=== PATIENT | male | born 1980 | race Caucasian/White ===

== ENCOUNTER 2021-03-05 08:11 | Inpatient (IN) | payer BC ==
[~2021-03-05] VITALS: Ht 185.4 cm; Wt 144.9 kg
[~2021-03-05 08:11] MED LIST: ACET325; ALBU90OI INH; AZIT250 PO; CLIN300 PO; CRUTCH3 USE; Cleocin HCl150 MG PO; DIAZ5 PO; FOLI1 PO; HYDACE5 PO; HYDMOR2 PO; HYDMOR4; IBUHYD PO; LAVAP17G PO; MESALAMINE; METH10 PO; MOMENI; Naprosyn500 MG PO; Norco 5-325 Ta1 EACH PO; OXYACE5T; OXYACE5T PO; OXYC10ER; OXYC5 PO; PRED10 PO; PRED20 PO; PREDNISONE; PROM25 PO; RXHYDMOR2 PO; RXOXYACE PO; RXPRED10; SUBOXONE 8 MG-1 EACH; SULF500A; SULF500A PO; SULTRIDS PO; SUMA25; VERA80
[2021-03-05] MEDS ORDERED: BUPRENORPHINE HC8 MG SL (08:33)
[2021-03-05 09:58] LABS: BASOPHILS ABSOLUTE AUTO 0.01 K/mm3 (0.00-0.23); BASOPHILS PERCENT AUTO 0 % (0-2); EOSINOPHILS ABSOLUTE AUTO 0.01 K/mm3 (0.00-0.68); EOSINOPHILS PERCENT AUTO 0 % (0-6); Hematocrit 36.2 % (37.0-53.0); Hemoglobin 12.1 g/dL (13.5-17.5); IMMATURE GRAN ABSOLUTE AUTO 0.03 K/mm3 (0.00-0.10); IMMATURE GRAN PERCENT AUTO 1 % (0-1); LYMPHOCYTES ABSOLUTE AUTO 0.52 K/mm3 (0.84-5.20); LYMPHOCYTES PERCENT AUTO 22 % (21-46); MONOCYTES ABSOLUTE AUTO 0.13 K/mm3 (0.16-1.47); MONOCYTES PERCENT AUTO 6 % (4-13); Mean Corpuscular HGB 29.6 pg (26.0-34.0); Mean Corpuscular HGB Conc 33.4 g/dL (31.5-36.5); Mean Corpuscular Volume 89 fL (80-100); Mean Platelet Volume 10.9 fL (9.1-12.4); NEUTROPHILS ABSOLUTE AUTO 1.67 K/mm3 (1.96-9.15); NEUTROPHILS PERCENT AUTO 71 % (41-73); Platelet Count 131 K/mm3 (150-400); RDW Standard Deviation 42.1 fL (35.1-46.3); Red Blood Cell Count 4.09 M/mm3 (4.30-5.90); White Blood Cell Count 2.37 K/mm3 (4.00-11.30)
[2021-03-05 10:21] LABS: Alanine Aminotransfer (ALT/SGP 145 U/L (12-78); Albumin, Blood 3.2 g/dL (3.4-5.0); Alk Phos 74 U/L (50-136); Anion Gap 4 mmol/L (6-16); Aspartate Aminotrans (AST/SGOT 220 U/L (12-37); Bilirubin, Total 0.5 mg/dL (0.1-1.0); Blood Urea Nitrogen 13 mg/dL (8-24); Bun/Creatinine Ratio 13.4 (12.0-20.0); CO2, Blood 29 mmol/L (21-32); Calcium, Blood 8.2 mg/dL (8.5-10.1); Chloride, Blood 107 mmol/L (98-108); Creatinine, Blood 0.97 mg/dL (0.60-1.20); Globulin, Blood 3.3 g/dL (2.2-4.0); Glomerular Filtration Rate >60 (60-); Glucose, Blood 114 mg/dL (70-99); Potassium, Blood 3.5 mmol/L (3.5-5.5); Sodium, Blood 140 mmol/L (136-145); Total Protein, Blood 6.5 g/dL (6.4-8.2)
--- NOTE | 2021-03-05 17:14 | NUR ---
SUMMARY PT ADMITTED FROM THE ER FOR COVID-19, AND NEEDING OXYGEN, PT IS ALERT AND ORIENTED, INDEPENDENT IN THE ROOM, ORIENTED PT TO THE ROOM AND CALL SYSTEM, EDUCATED PT ABOUT MEDICAL EQUIPMENT IN THE ROOM, PT DOES NOT APPEAR IN ANY RESPIRATORY DISTRESS, PT ON 7L VENTI MASK, PLACED ON 8L HIGH FLOW O2, CONTINUOUS OXIMETER IN PLACE, PT SATS RANGE FROM 87 TO 94, SATS DROP WHEN PT TALKING OR SLEEPING, PT PLACED BACK ON 7L VENTI MASK FOR SLEEPING PER HIS REQUEST, NO COMPLAINTS, VSS, WILL CONT TO MONITOR
--- NOTE | 2021-03-06 00:56 | NUR ---
CALL TO HOSPITALIST / BRADYCARDIA HR AVERAGING 50-56, NORAL SINUS. LOW AT 48 BPM PER TELE MONITOR. INFORMED HOSPITALIST DR. CALVILLO. NEW ORDER FOR CPAP. RT NOTIFIED.
--- NOTE | 2021-03-06 02:47 | NUR ---
CALL TO HOSPITALIST / PT REFUSING CPAP NOTIFIED DR. CALVILLO OF FAILED ATTEMPT AT USING CPAP. ORDERS TO CONT TO MONITOR VIA TELE.
--- NOTE | 2021-03-06 04:23 | NUR ---
SHIFT SUMMARY: AAOX4. MAINTAINING 02 SATS 89-92% ON 10L VIA VENTIMASK. STATES HE IS FEELING GENERALLY BETTER. NO CHEST PAIN, NO SOB. LS DIM. REPORTS INFREQUENT NON-PRODUCTIVE COUGH. NO N/V/D. INDEPENDENT IN ROOM. CALLS APPROPRIATELY. SINUS LORRAINE THROUGH THE NIGHT W/ RATE RANGING FROM 48 TO 56 WHILE SLEEPING. HR IN THE 60'S WHILE AWAKE. NO ACUTE OVERNIGHT EVENTS. WCTM.
[2021-03-06 05:13] LABS: BASOPHILS ABSOLUTE AUTO 0.01 K/mm3 (0.00-0.23); BASOPHILS PERCENT AUTO 0 % (0-2); EOSINOPHILS PERCENT AUTO 0 % (0-6); Hematocrit 35.2 % (37.0-53.0); Hemoglobin 11.8 g/dL (13.5-17.5); IMMATURE GRAN ABSOLUTE AUTO 0.04 K/mm3 (0.00-0.10); IMMATURE GRAN PERCENT AUTO 2 % (0-1); LYMPHOCYTES ABSOLUTE AUTO 0.44 K/mm3 (0.84-5.20); LYMPHOCYTES PERCENT AUTO 19 % (21-46); MONOCYTES ABSOLUTE AUTO 0.28 K/mm3 (0.16-1.47); MONOCYTES PERCENT AUTO 12 % (4-13); Mean Corpuscular HGB 29.8 pg (26.0-34.0); Mean Corpuscular HGB Conc 33.5 g/dL (31.5-36.5); Mean Corpuscular Volume 89 fL (80-100); NEUTROPHILS ABSOLUTE AUTO 1.53 K/mm3 (1.96-9.15); NEUTROPHILS PERCENT AUTO 67 % (41-73); Platelet Count 137 K/mm3 (150-400); RDW Coefficient Variation 12.8 % (11.7-14.2); RDW Standard Deviation 42.2 fL (35.1-46.3); Red Blood Cell Count 3.96 M/mm3 (4.30-5.90)
[2021-03-06 05:38] LABS: Alanine Aminotransfer (ALT/SGP 145 U/L (12-78); Albumin/Globulin Ratio 0.9 (0.8-1.8); Alk Phos 75 U/L (50-136); Anion Gap 7 mmol/L (6-16); Aspartate Aminotrans (AST/SGOT 181 U/L (12-37); Bilirubin, Total 0.5 mg/dL (0.1-1.0); Blood Urea Nitrogen 16 mg/dL (8-24); Bun/Creatinine Ratio 18.5 (12.0-20.0); CO2, Blood 27 mmol/L (21-32); Chloride, Blood 104 mmol/L (98-108); Creatinine, Blood 0.86 mg/dL (0.60-1.20); Globulin, Blood 3.4 g/dL (2.2-4.0); Glomerular Filtration Rate >60 (60-); Glucose, Blood 115 mg/dL (70-99); Sodium, Blood 138 mmol/L (136-145); Total Protein, Blood 6.4 g/dL (6.4-8.2)
--- NOTE | 2021-03-06 18:55 | NUR ---
ASSUMED CARE RECEIVED REPORT FROM ANDRE BOSWELL. PT RESTING, IN NO ACUTE DISTRESS. O2 SATS AVERAGING IN THE LOW 90'S, HR IN THE MID 50'S. NO ACUTE NEEDS ASSESSED AT THIS TIME. CALL LIGHT IN REACH.
--- NOTE | 2021-03-06 19:21 | NUR ---
SHIFT SUMMARY: NO ACUTE CHANGES TO REPORT THIS SHIFT. PT A&O; CALM AND COOPERATIVE WITH CARE; INDEPENDENT IN ROOM. COVID-19 POSITIVE; REMDESIVIR QD; DAY 1 TODAY. O2 @ 10L; RA @ HOME. REPORT GIVENTO ONCOMING RN.
--- NOTE | 2021-03-06 21:15 | NUR ---
THIS RN SPOKE TO DUSTY HERRMANN REGARDING PT'S ONGOING BRADYCARDIA AND HR TOUCHING DOWN TO 43. NO NEW ORDERS RECEIVED AT THIS TIME. PT ASYMPTOMATIC, WCTM PT'S HR AND PROVIDE TX NEEDED.
--- NOTE | 2021-03-07 02:30 | NUR ---
THIS RN NOTIFIED BY BODY AND FENDER WORKER OF PT'S HR REACHING RATE OF 39. PT ASYMPTOMATIC. WCTM.
--- NOTE | 2021-03-07 06:39 | NUR ---
UTILITY ACCOUNTS DIRECTOR SUMMARY PT RESTING, IN NO ACUTE DISTRESS. VS REVIEWED, WNL; PT HAS BEEN TRENDING BRADYCARDIC, HR AVERAGING MID 40'S-50'S; PT ASYMPTOMATIC; O2 SATS 89-94% ON 10L VENTI-MASK, ENCOURAGED PT TO SELF-PRONE, SLEEP ON SIDE MUCH TOLERATED, PT INDICATED UNDERSTANDING. O2 SATS INCREASED TO 94-96% WHEN PRONED. SLEPT T/O NIGHT. DENIES CP/PRESSURE. STATES IT "FEELS LIKE SHARP KNIVES ARE POKING ME" WHEN INHALING; ENCOURAGED DEEP BREATHING. PT IN NO ACUTE DISTRESS AT THIS TIME. DENIES NEEDS. CALL LIGHT, POSSESSIONS IN REACH. WILL CONTINUE TO PROVIDE CARE UNTIL REPORT GIVEN TO DAY RN.
--- NOTE | 2021-03-07 18:04 | NUR ---
SHIFT SUMMARY: NO ACUTE EVENTS TO REPORT THIS SHIFT. PT A&O; CALM AND COOPERATIVE WITH CARE; INDEPENDENT IN ROOM. COVID POSITIVE; LUNGS DIM c RHONCHI; CPAP IN PLACE T/O SHIFT - O2 SATS 92-94%; REMDESIVIR & STEROIDS CONTINUING; RT FOLLOWING. WCTM.
--- NOTE | 2021-03-08 16:31 | NUR ---
Met with pt this am; he was lying in bed using oxygen on 9L. Denies SOB at this time while on the 02. He states he began running a fever a few days ago along with his and daughter. He decided his family should be self quarantining, and continued until he became SOB and came to the hospital. He tested positive upon arrival at the ED, and his 02 sats were in the 80's. He states both his and daughter did not get as sick as him, and had no real respiratory symptoms at all, and are both on the mend.
--- NOTE | 2021-03-08 18:35 | NUR ---
PT IS A/OX3, PLEASANT AND COOPERATIVE, THE PT IS UP IND IN HIS ROOM. THE PT DENIED ANY PAIN OR N/V TODAY, THIS AM THE PTS O2 WAS AT 10L/MIN, T/O THE DAY THE PTS O2 HAS BEEN TITRATED DOWN, NOW AT 5L/MIN, THE PTS SPO2 IS CONSISTANT AT THIS TIME AT 93%, THE PTS HEART RATE HAS BEEN IN THE 45-60 BPM RANGE T/O THE DAY, THE PT IS ON TELE, CALL LIGHT IN REACH, WILL CONTINUE TO MONITOR AND ASSESS FOR CHANGES
[2021-03-09 06:03] LABS: BASOPHILS ABSOLUTE AUTO 0.06 K/mm3 (0.00-0.23); BASOPHILS PERCENT AUTO 1 % (0-2); EOSINOPHILS PERCENT AUTO 0 % (0-6); Hematocrit 38.5 % (37.0-53.0); Hemoglobin 12.6 g/dL (13.5-17.5); IMMATURE GRAN ABSOLUTE AUTO 0.53 K/mm3 (0.00-0.10); IMMATURE GRAN PERCENT AUTO 9 % (0-1); LYMPHOCYTES ABSOLUTE AUTO 1.14 K/mm3 (0.84-5.20); LYMPHOCYTES PERCENT AUTO 19 % (21-46); MONOCYTES PERCENT AUTO 14 % (4-13); Mean Corpuscular HGB 29.4 pg (26.0-34.0); Mean Corpuscular HGB Conc 32.7 g/dL (31.5-36.5); Mean Corpuscular Volume 90 fL (80-100); NEUTROPHILS ABSOLUTE AUTO 3.36 K/mm3 (1.96-9.15); NEUTROPHILS PERCENT AUTO 57 % (41-73); Platelet Count 224 K/mm3 (150-400); RDW Coefficient Variation 12.8 % (11.7-14.2); RDW Standard Deviation 42.5 fL (35.1-46.3); Red Blood Cell Count 4.29 M/mm3 (4.30-5.90); White Blood Cell Count 5.89 K/mm3 (4.00-11.30)
[2021-03-09 06:37] LABS: Anion Gap 5 mmol/L (6-16); BAND PERCENT MAN 3 % (0-8); BASOPHILS PERCENT MAN 0 % (0-2); Blood Urea Nitrogen 29 mg/dL (8-24); Bun/Creatinine Ratio 30.2 (12.0-20.0); CO2, Blood 29 mmol/L (21-32); Calcium, Blood 7.9 mg/dL (8.5-10.1); Chloride, Blood 105 mmol/L (98-108); Creatinine, Blood 0.96 mg/dL (0.60-1.20); EOSINOPHILS PERCENT MAN 0 % (0-6); Glomerular Filtration Rate >60 (60-); Glucose, Blood 90 mg/dL (70-99); LYMPHOCYTES ABSOLUTE MAN 0.88 K/mm3 (0.84-5.20); LYMPHOCYTES PERCENT MAN 15 % (21-46); METAMYELOCYTE ABSOLUTE MAN 0.35 K/mm3 (0.00-0.00); METAMYELOCYTE PERCENT MAN 6 % (0-0); MONOCYTES ABSOLUTE MAN 0.41 K/mm3 (0.16-1.47); MONOCYTES PERCENT MAN 7 % (4-13); MYELOCYTE ABSOLUTE MAN 0.23 K/mm3 (0.00-0.00); MYELOCYTE PERCENT MAN 4 % (0-0); Potassium, Blood 4.1 mmol/L (3.5-5.5); SEG NEUTROPHILS PERCENT MAN 65 % (41-73); Sodium, Blood 139 mmol/L (136-145); TOTAL CELLS COUNTED 100
--- NOTE | 2021-03-09 06:39 | NUR ---
BUYER PLANNER SUMMARY PT AAOX4 AND VERY PLEASANT. INDEPENDENT TO BATHROOM. PT STATES BREATHING IMPROVED TONIGHT. PT STARTED SHIFT ON 5L O2 VIA VENTURI MASK, TITRATED DOWN TO 2L CURRENTLY. O2 SATS NOW 90-94% ON 2L. PT TO RECIEVE FINAL DOSE OF REMDESIVIR LATER TODAY. VSS, WILL CONTINUE TO MONITOR.
[2021-03-09] MEDS ORDERED: DEXA6 PO (12:42)
[2021-03-09] MEDS ORDERED: HYDROCHLOROTH12.5 MG PO (12:43)
--- NOTE | 2021-03-09 13:20 | NUR ---
DISCHARGE INSTRUCTIONS REVIEWED WITH PT. IV DC'D INTACT. RX FAXED TO [facility] ATTEMPTED TO CALL PCP FOR F/U APPT BUT OUT FOR LUNCH PT REPORTS HE WILL CALL FOR APPT. PT EAGER TO GO HOME, ON ROOM AIR AND AMBULATING INDEP IN ROOM. PT DC'D HOME AT 1315, ESCORTED OUT VIA W/C.
== END 2021-03-09 13:15 | disposition home or self-care (01) | DRG 177 ==
LOC: ER 08:11 → MEDS 11:01 → ER 12:19 → MEDS 12:36 → ENPENDDIS 03-09 12:50 → MEDS 03-09 13:15
PROVIDERS: Emergency Medicine; Student in an Organized Health Care Education/Training Program; ADMIT Internal Medicine
PROC: 8E0ZXY6 Isolation (ICD-10-PCS; principal; 2021-03-05)
PROC: XW033E5 Introduction of Remdesivir Anti-infective into Peripheral Vein, Percutaneous Approach, New Technology Group 5 (ICD-10-PCS; 2021-03-06)
PROC: 5A09457 Assistance with Respiratory Ventilation, 24-96 Consecutive Hours, Continuous Positive Airway Pressure (ICD-10-PCS; 2021-03-07)
DX: U07.1 COVID-19 (principal); J96.01 Acute respiratory failure with hypoxia; F11.20 Opioid dependence, uncomplicated; K51.90 Ulcerative colitis, unspecified, without complications; Q43.3 Congenital malformations of intestinal fixation; I10 Essential (primary) hypertension; G47.33 Obstructive sleep apnea (adult) (pediatric); Z87.891 Personal history of nicotine dependence; Z98.890 Other specified postprocedural states; Z88.0 Allergy status to penicillin; Z88.1 Allergy status to other antibiotic agents; Z79.899 Other long term (current) drug therapy
CPT/HCPCS: 36415; 71045; 80048; 80053; 83880; 84145; 85025; 93005; 93010; 94660; 94762; 96365; 99285-25; A9270; J1650; J7050

== ENCOUNTER 2021-04-01 19:06 | Emergency (ER) | payer BC ==
[~2021-04-01] VITALS: Ht 185.4 cm; Wt 129.3 kg
[~2021-04-01 19:06] MED LIST changes: +BUPRENORPHINE HC8 MG SL; +DEXA6 PO; +HYDROCHLOROTH12.5 MG PO
[2021-04-01 19:58] LABS: BASOPHILS ABSOLUTE AUTO 0.04 K/mm3 (0.00-0.23); BASOPHILS PERCENT AUTO 1 % (0-2); EOSINOPHILS ABSOLUTE AUTO 0.37 K/mm3 (0.00-0.68); EOSINOPHILS PERCENT AUTO 7 % (0-6); Hematocrit 35.5 % (37.0-53.0); Hemoglobin 12.1 g/dL (13.5-17.5); IMMATURE GRAN ABSOLUTE AUTO 0.05 K/mm3 (0.00-0.10); IMMATURE GRAN PERCENT AUTO 1 % (0-1); LYMPHOCYTES ABSOLUTE AUTO 1.32 K/mm3 (0.84-5.20); LYMPHOCYTES PERCENT AUTO 24 % (21-46); MONOCYTES ABSOLUTE AUTO 0.61 K/mm3 (0.16-1.47); MONOCYTES PERCENT AUTO 11 % (4-13); Mean Corpuscular HGB 30.2 pg (26.0-34.0); Mean Corpuscular HGB Conc 34.1 g/dL (31.5-36.5); Mean Corpuscular Volume 89 fL (80-100); Mean Platelet Volume 10.7 fL (9.1-12.4); NEUTROPHILS ABSOLUTE AUTO 3.07 K/mm3 (1.96-9.15); NEUTROPHILS PERCENT AUTO 56 % (41-73); Platelet Count 207 K/mm3 (150-400); RDW Coefficient Variation 13.2 % (11.7-14.2); RDW Standard Deviation 42.5 fL (35.1-46.3); Red Blood Cell Count 4.01 M/mm3 (4.30-5.90); White Blood Cell Count 5.46 K/mm3 (4.00-11.30)
[2021-04-01 20:22] LABS: Alanine Aminotransfer (ALT/SGP 84 U/L (12-78); Albumin, Blood 3.6 g/dL (3.4-5.0); Alk Phos 80 U/L (50-136); Anion Gap 7 mmol/L (6-16); Aspartate Aminotrans (AST/SGOT 45 U/L (12-37); Bilirubin, Total 0.6 mg/dL (0.1-1.0); Blood Urea Nitrogen 16 mg/dL (8-24); CO2, Blood 27 mmol/L (21-32); Calcium, Blood 8.3 mg/dL (8.5-10.1); Chloride, Blood 107 mmol/L (98-108); Creatinine, Blood 1.07 mg/dL (0.60-1.20); Globulin, Blood 3.6 g/dL (2.2-4.0); Glomerular Filtration Rate >60 (60-); Glucose, Blood 124 mg/dL (70-99); Potassium, Blood 3.3 mmol/L (3.5-5.5); Sodium, Blood 141 mmol/L (136-145); Total Protein, Blood 7.2 g/dL (6.4-8.2)
[2021-04-01 20:24] LABS: Troponin I <0.015 ng/mL (0.000-0.040)
[2021-04-01] MEDS ORDERED: Lasix20 MG PO (21:10)
== END 2021-04-01 21:38 | disposition home or self-care (01) ==
LOC: ER 19:06
PROVIDERS: Physician Assistant
DX: R60.0 Localized edema (principal); Z86.16 Personal history of COVID-19; Z88.0 Allergy status to penicillin; Z88.1 Allergy status to other antibiotic agents; Z79.899 Other long term (current) drug therapy; Z87.891 Personal history of nicotine dependence
CPT/HCPCS: 36415; 71046; 80053; 83690; 83880; 84484; 85025; 93005; 93010; 93970; 99284-25

== ENCOUNTER 2025-09-08 07:04 | Day surgery (SDC) | payer OTHER | END 2025-09-08 09:22 | disposition home or self-care (01) | LOC: ORSCMMR 07:04 | PROC: 0DBP8ZX Excision of Rectum, Via Natural or Artificial Opening Endoscopic, Diagnostic (ICD-10-PCS; principal; 2025-09-08) | PROC: 0DBN8ZX Excision of Sigmoid Colon, Via Natural or Artificial Opening Endoscopic, Diagnostic (ICD-10-PCS; principal; 2025-09-08) | PROC: 0DBK8ZX Excision of Ascending Colon, Via Natural or Artificial Opening Endoscopic, Diagnostic (ICD-10-PCS; principal; 2025-09-08) | PROC: 0DBM8ZX Excision of Descending Colon, Via Natural or Artificial Opening Endoscopic, Diagnostic (ICD-10-PCS; principal; 2025-09-08) | PROC: 0DBL8ZX Excision of Transverse Colon, Via Natural or Artificial Opening Endoscopic, Diagnostic (ICD-10-PCS; principal; 2025-09-08) | DX: K51.90 Ulcerative colitis, unspecified, without complications (principal); K62.1 Rectal polyp; I10 Essential (primary) hypertension; G47.33 Obstructive sleep apnea (adult) (pediatric); Z86.16 Personal history of COVID-19; E66.01 Morbid (severe) obesity due to excess calories; Z68.41 Body mass index [BMI] 40.0-44.9, adult; Z79.899 Other long term (current) drug therapy ==